=== PATIENT | female | born 1985 | race Caucasian/White ===

== ENCOUNTER 2023-07-18 11:35 | Emergency (ER) | payer SELFPAY ==
[2023-07-18] MEDS ORDERED: Haloperidol Lactate 5 MG/ML VIAL ONE ×2 (11:45→12:33)
[2023-07-18] MEDS ORDERED: Metoclopramide HCl 10 MG/2 ML VIAL ONE (11:46)
[2023-07-18] MEDS ORDERED: Lorazepam 2 MG/ML VIAL ONE ×3 (12:33→18:44)
[2023-07-18] MEDS ORDERED: diphenhydrAMINE 50 MG/ML VIAL ONE (12:34)
[2023-07-18] MEDS ORDERED: Ziprasidone 20 MG VIAL ONE (13:15)
[2023-07-18] MEDS ORDERED: Sterile Water 10 ML ONE (13:17)
[2023-07-18] MEDS ORDERED: Pantoprazole 40 MG VIAL ONE (15:02)
[2023-07-18 15:15] LABS: #Basophils 0.1 10x3/uL (0.0-0.2); #Monocytes 0.2 10x3/uL (0.0-1.1); #Neutrophils 14.6 10x3/uL (1.5-8.4); %Basophils 0.3 % (0.0-2.0); %Eosinophils 0.1 % (0.0-6.0); %Lymphocytes 6.3 % (18.0-47.0); %Monocytes 1.4 % (0.0-10.0); %Neutrophils 91.5 % (40.0-75.0); Hematocrit 41.8 % (34.9-44.5); Hemoglobin 15.1 g/dL (12.0-15.5); Mean Corpuscular HGB CONC 36.1 g/dL (32.0-36.0); Mean Corpuscular Hemoglobin 31.6 pg (27.0-33.0); Mean Corpuscular Volume 87.4 fl (81.6-98.3); Mean Platelet Volume 10.4 fl (7.4-10.4); Platelet Count 276 10x3/uL (150-450); RBC Distribution Width 12.8 % (11.5-14.5); Red Blood Cell (RBC) Count 4.78 10x6/uL (3.90-5.03)
[2023-07-18 15:17] LABS: Troponin I Less than 0.010 ng/mL (< 0.028)
[2023-07-18 15:20] LABS: ALT (SGPT) 26 U/L (8-55); AST (SGOT) 18 U/L (5-34); Acetaminophen Less than 10 mcg/mL (10.0-30.0); Albumin 4.7 g/dL (3.5-5.0); Alcohol Less than 10.0 mg/dL (Less than 10); Alkaline Phosphatase 95 U/L (40-110); Anion Gap 19 mmol/L (10-20); BUN (Urea Nitrogen) 15 mg/dL (7.0-18.7); Bilirubin, Total 1.1 mg/dL (0.2-1.2); Calc. Creatinine Clearance 0 mL/min (70-130); Calcium 9.9 mg/dL (7.8-10.44); Carbon Dioxide 22 mmol/L (22-29); Chloride 101 mmol/L (98-107); Estimated GFR 88; Globulin 3.4 g/dL (2.4-3.5); Glucose 329 mg/dL (70-105); Lipase 20 U/L (8-78); Magnesium 1.6 mg/dL (1.6-2.6); Potassium 4.5 mmol/L (3.5-5.1); Protein, Total 8.1 g/dL (6.0-8.3); Salicylate Less than 8.0 mg/dL (15.0-30.0); Sodium 137 mmol/L (136-145)
[2023-07-18] MEDS ORDERED: PROPOFOL 0 ML ONE (15:54)
[2023-07-18 16:52] LABS: Bilirubin Neg (Negative); Blood, Urine 10 (Negative); Clarity Clear (Clear); Glucose, Urine (Dipstick) >=1000 mg/dL (Negative); Ketone, Urine 150 mg/dL (Negative); Leukocyte Negative (Negative); Nitrite Negative (Negative); Protein, Urine (Dipstick) Negative (Neg-Trace); Specific Gravity, Urine 1.015 (1.005-1.030); Urobilinogen Normal mg/dL (Less than 2)
[2023-07-18 17:00] LABS: Amphetamine Not Detected (NotDetected); Barbiturates Screen Not Detected (NotDetected); Benzodiazepine Screen Detected (NotDetected); Cocaine Metabolite Screen Not Detected (NotDetected); Methadone Not Detected (NotDetected); Methamphetamine Not Detected (NotDetected); Opiate Screen Not Detected (NotDetected); Oxycodone Screen Not Detected (NotDetected); Phencyclidine (PCP) Not Detected (NotDetected); THC/Cannabinoid Screen Detected (NotDetected); Tricyclic Screen Not Detected (NotDetected)
[2023-07-18 17:11] LABS: Bacteria/HPF 1+ HPF (None Seen); CAUTI Indications for Culture Alt mental st,lethar; RBC/HPF 0-3 HPF (0-3); WBC/HPF 0-3 HPF (0-3)
[2023-07-18 17:13] LABS: Urine Culture Reflex No No
[2023-07-18] MEDS ORDERED: Ondansetron PF 4 MG/2 ML Vial ONE (18:44)
[2023-07-18] MEDS ORDERED: Gabapentin 300 MG CAP ONE (23:56)
[2023-07-19] MEDS ORDERED: OLANZapine 5 MG TAB PO SCH (00:15)
[2023-07-19] MEDS ORDERED: busPIRone HCl 15 MG TAB PO SCH (00:15)
[2023-07-19] MEDS ORDERED: hydrOXYzine 25 MG TAB ONE (07:27)
[2023-07-19] MEDS ORDERED: risperiDONE 0.5 MG TAB ONE (07:27)
[2023-07-19 07:30] LABS: BHCG - Serum Negative (NEGATIVE); Pregs Control Bar Appear? YES (CONTROL BAR)
[2023-07-19 07:31] LABS: Pregs Control Background? CLEAR/WHITE (CLR/WHITE)
[2023-07-19] MEDS ORDERED: Empagliflozin 10 MG TAB PO SCH (07:45)
[2023-07-19 09:24] LABS: SARS-CoV-2 NAA Rapid Test Not Detected (NotDetected)
== END 2023-07-19 17:37 ==
LOC: EDBD 11:35 → CSHERS 11:35
DX: R45.851 Suicidal ideations (principal); E11.9 Type 2 diabetes mellitus without complications; E78.2 Mixed hyperlipidemia; Z20.822 Contact with and (suspected) exposure to COVID-19
CPT/HCPCS: 36415; 36416; 80053; 80306; 80307; 81001; 83690; 83735; 84484; 84703; 85025; 93005; 96372; 96374; 96375; 96376; C9113; J1200; J1630; J2060; J2405; J2704; J2765; J3486; U0002